=== PATIENT | male | born 1945 | race Caucasian/White ===

== ENCOUNTER 2020-08-15 11:02 | Day surgery (SDC) | payer MEDICARE, BC ==
[~2020-08-15 11:02] MED LIST: Pilocarpine 4% Ophth Soln 15 ML Bot EYEBOTH SCH
== END 2020-08-15 11:47 | disposition home or self-care (01) ==
LOC: JD.SDS 11:02
PROVIDERS: ATTEND Ophthalmology
DX: H40.033 Anatomical narrow angle, bilateral (principal); H40.20X0 Unspecified primary angle-closure glaucoma, stage unspecified; E07.9 Disorder of thyroid, unspecified; H25.813 Combined forms of age-related cataract, bilateral; E11.36 Type 2 diabetes mellitus with diabetic cataract; H35.3133 Nonexudative age-related macular degeneration, bilateral, advanced atrophic without subfoveal involvement; H35.363 Drusen (degenerative) of macula, bilateral; H16.103 Unspecified superficial keratitis, bilateral; H02.831 Dermatochalasis of right upper eyelid; H02.834 Dermatochalasis of left upper eyelid; Z98.890 Other specified postprocedural states; Z87.891 Personal history of nicotine dependence; Z79.890 Hormone replacement therapy; Z79.899 Other long term (current) drug therapy